=== PATIENT | female | born 1995 | race Caucasian/White ===

== ENCOUNTER 2024-07-24 10:40 | Outpatient (REF) | payer MEDICAID, SELFPAY ==
--- NOTE | ~2024-07-24 | XR_ITS ---
EXAMINATION: XR FOOT, LEFT CLINICAL INFORMATION: M79.672 - Pain in left foot , crush injury 45 pound weight. COMPARISON: None available. TECHNIQUE: AP, lateral, and oblique views of the left foot. FINDINGS: Minimal degenerative changes in the first metatarsophalangeal joint. Radiopaque marker placed by technologist to indicate the area of concern as indicated by the patient along the medial aspect of the first metatarsal head. No displaced fracture of the first metatarsal appreciated. Tiny plantar and posterior calcaneal spurs. XR/XR foot LT min 3V IMPRESSION: No displaced fracture of the first metatarsal appreciated. Tiny plantar and posterior calcaneal spurs. This study was presented today to July 24, 2024 for interpretation. Stat results provided at this time as requested by referring provider. Electronically signed by: Rissa Rosales MD 07/24/2024 02:01 PM BRENT CANTOR
== END 2024-07-24 10:41 | disposition home or self-care (01) ==
LOC: HO.HMGCX 10:40
PROVIDERS: Visit Provider Registered Nurse
DX: M79.672 Pain in left foot (principal); S90.32XA Contusion of left foot, initial encounter
CPT/HCPCS: 73630; 99202

== ENCOUNTER 2024-07-24 10:40 | Outpatient (AMB) | payer MEDICAID, SELFPAY ==
[2024-07-24 10:43] VITALS: BP 130/88; PULSE 97; TEMP 36.2; O2SAT 100; BMI 30.6
--- NOTE | 2024-07-24 10:43 | AM.OFFWIN_ITS ---
Intake Vital Signs 07/24/24 10:43 Height 5 ft 2 in Weight 167 lb 8 oz BMI 30.6 BP 130/88 Blood Pressure Location Rt brachial Position Sitting Pulse 97 Pulse Source Pulse Oximeter Temp 97.2 F Temp Source Temporal Artery Scan Pulse Oximetry (%) 100 Oxygen Delivery Method Room Air Intake Visit Reasons: SAT [employer] LT foot injury (dropped 45 lb WT) Intake Note: Pt presents to the office today for c/o left foot injury when she dropped a 45lb weight on her foot this morning. Patient Tobacco Use Status: Never used Tobacco Allergies amoxicillin Allergy (Intermediate, Verified 07/24/24 10:47) Stomach Upset HPI [employer] LT foot injury (dropped 45 lb WT) HPI Details This note is constructed using voice recognition software. While every effort has been made to ensure accuracy, environmental education specialist errors may have been included. The patient is a 29 year old female who presents to the clinic today with left foot pain after dropping a 45 lb weight on it at 05:30 this morning. She reports that initially she was able to wiggle her toes, but after swelling has sudden it is more difficult to do so. The pain is in the top of the foot near the great toe, and where there is bruising. She has not previously injured the foot. She is limping when walking. PFSH Social History Patient Tobacco Use Status: Never used Tobacco Review of Systems Const All systems reviewed & are unremarkable except as noted in HPI and below Physical Exam Vital Signs: Last Vital Signs Temp 97.2 F 07/24/24 10:43 Pulse 97 07/24/24 10:43 BP 130/88 07/24/24 10:43 Pulse Ox 100 07/24/24 10:43 Oxygen Delivery Method Room Air 07/24/24 10:43 BMI result Body Mass Index 30.6 Const General: cooperative, healthy appearing, comfortable, no acute distress and well developed Orientation/consciousness: patient oriented x3 Limitations: no limitations Resp Effort & Inspection: normal respiratory effort and able to speak in complete sentences Skin General skin exam: no rashes or lesions noted Neuro General: patient oriented x3 Extrem Other: Left foot echymosis and TTP with slight edema to 1st metatarsal and proximal phalange dorsal foot. Ankle FROM. Results Reviewed Results Reviewed: XR images contemporaneously read by me with no findings of fracture noted Assessment & Plan Assessment & Plan (1) Contusion of left foot: Code(s): S90.32XA - Contusion of left foot, initial encounter Qualifiers: Encounter type: initial encounter Qualified Code(s): S90.32XA - Contusion of left foot, initial encounter Plan: No obvious fracture present on x-rays. Given patient's injury, discussed immobilization with Airc[employer] the improve mobility, advised patient to rest, ice, compress, elevate. Advised avoidance of going to the gym until symptoms have resolved. Advised follow up worsening or failure to resolve. Plan See above for full details and plan. Orders: Orders XR foot LT min 3V Today M79.672 - Pain in left foot Coding Level of Care Code New Pt Level 4 (13602) Diagnoses Contusion of left foot, initial encounter S90.32XA Encounter type: initial encounter
== END 2024-07-24 11:35 | disposition home or self-care (01) ==
PROVIDERS: Visit Provider Registered Nurse
DX: S90.32XA Contusion of left foot, initial encounter (principal)